=== PATIENT | male | born 1995 | race Caucasian/White ===

== ENCOUNTER 2022-12-10 09:18 | Emergency (ER) | payer MEDICAID, OTHER ==
[~2022-12-10] VITALS: Ht 180.3 cm; Wt 117.9 kg
[2022-12-10] MEDS ORDERED: NAPROXEN 500 MG TABLET PO ONE (10:00)
[2022-12-10] MEDS ORDERED: NAPROXEN 500 MG TABLET ONE (10:05)
[2022-12-10] MEDS ORDERED: NAPR-1009 PO (11:14)
--- NOTE | 2022-12-10 11:20 | NUR ---
Patient discharged to home in stable condition. Written and verbal after care instructions given. Patient verbalizes understanding of instructions. Stressed follow up or return to ER for worsening s/s.
== END 2022-12-10 11:21 | disposition home or self-care (01) ==
LOC: ER 09:18
DX: M25.561 Pain in right knee (principal); M25.461 Effusion, right knee; Z87.81 Personal history of (healed) traumatic fracture; E66.9 Obesity, unspecified; Z68.36 Body mass index [BMI] 36.0-36.9, adult
CPT/HCPCS: A4663

== ENCOUNTER 2022-12-15 11:22 | Emergency (ER) | payer MEDICAID ==
[~2022-12-15] VITALS: Ht 180.3 cm; Wt 117.9 kg
[~2022-12-15 11:22] MED LIST: NAPR-1009 PO
[2022-12-15 12:39] LABS: CREATININE 0.8 mg/dL (0.6-1.3); POTASSIUM 3.6 mmol/L (3.5-5.1)
[2022-12-15 12:44] LABS: BILIRUBIN,DIRECT 0.2 mg/dL (0.0-0.2); BILIRUBIN,TOTAL 0.7 mg/dL (0.2-1.0); TOTAL PROTEIN, SERUM 8.1 g/dL (6.4-8.2)
[2022-12-15 12:46] LABS: HEMATOCRIT 45.4 % (36.7-47.1); MEAN CORPUSCULAR HEMOGLOBIN 31.8 uug (23.8-33.4); MEAN CORPUSCULAR VOLUME 94.9 fL (73.0-96.2); PLATELET COUNT (AUTO) 240 K/uL (152-348)
--- NOTE | 2022-12-15 12:50 | NUR ---
Patient discharged to home in stable condition with brisk steady gait. Written and verbal after care instructions given by MD himself. Patient verbalized understanding and compliance of instructions. Stressed follow up with primary doctor or return to ER for worsening s/s. Copies of all ER tests' results were given to patient.
[2022-12-15 13:16] VITALS: BP 130/84
== END 2022-12-15 13:18 | disposition home or self-care (01) ==
LOC: ER 11:22
DX: R04.2 Hemoptysis (principal); E66.9 Obesity, unspecified; Z68.36 Body mass index [BMI] 36.0-36.9, adult
CPT/HCPCS: 36415; 85025; A4663